=== PATIENT | female | born 1975 | race Two or more races ===

== ENCOUNTER 2018-04-13 17:33 | Emergency (ER) | payer MEDICAID ==
--- NOTE | 2018-04-13 18:11 | ED ---
Psychiatric Complaint - HPI Summary HPI Summary: The pt is a 42 y/o female presenting to [facility] c/o anxiety since 3 weeks ago after lacking her prescriptions for [place], Celexa and Xanax. She recently moves from [place]. The pt went to the [facility] clinic for a prescription but they were unable to. She denies SI/HI. She requests a prescription refill. Pertinent Mhx: Depression, Anxiety and PTSD. - History Of Current Complaint Chief Complaint: EDGeneral Time Seen by Provider: 04/13/18 18:03 Hx Obtained From: Patient Onset/Duration: Lasting Weeks - 3 weeks, Still Present Timing: Constant Character: Anxious Aggravating Factor(s): Other - Lack of psych medication Related History: Positive For: Prior Psychiatric Issues Has Suicidal: Denies: Thoughts, With A Plan Has Homicidal: Denies: Thoughts, With A Plan - Allergies/Home Medications Allergies/Adverse Reactions: Allergies Allergy/AdvReac Type Severity Reaction Status Date / Time latex Allergy Rash Verified 04/13/18 17:48 shellfish derived Allergy Anaphylatic Verified 04/13/18 17:48 Shock Home Medications: Home Medications ALPRAZolam TAB* [Xanax TAB*] 0.5 mg PO QAM 04/13/18 [History Confirmed 04/13/18] ARIPiprazole TAB* [Abilify 20 MG TAB*] 20 mg PO DAILY 04/13/18 [History Confirmed 04/13/18] Citalopram Hydrobromide [Celexa] 20 mg PO DAILY 04/13/18 [History Confirmed ] [place] Carbonate [[place] Carbonate 300 mg cap] 900 mg PO DAILY 04/13/18 [ History Confirmed 04/13/18] Tramadol HCl 1 % PO DAILY PRN 04/13/18 [History Confirmed 04/13/18] levETIRAcetam TAB* [Keppra TAB*] 1,000 mg PO BID 04/13/18 [History Confirmed ] PMH/Surg Hx/FS Hx/Imm Hx Previously Healthy: No Endocrine/Hematology History: Denies: Hx Diabetes Cardiovascular History: Denies: Hx Hypertension Sensory History: Denies: Hx Deafness Psychiatric History: Reports: Hx Anxiety, Hx Depression, Hx Post Traumatic Stress Disorder - Cancer History Cancer Type, Location and Year: None reported - Surgical History Surgery Procedure, Year, and Place: None reported Infectious Disease History: No Infectious Disease History: Denies: Traveled Outside the [place] in Last 30 Days - Family History Known Family History: Negative: Cardiac Disease, Hypertension, Diabetes - Social History Occupation: Employed Full-time Lives: With Family Alcohol Use: None Substance Use Type: Reports: None Smoking Status (MU): Light Every Day Tobacco Smoker Review of Systems Negative: Fever Positive: Anxious, Other - Negative: SI/HI All Other Systems Reviewed And Are Negative: Yes Physical Exam - Summary Physical Exam Summary: Appearance: The patient is well-nourished in no acute distress and in no acute pain. Skin: The skin is warm and dry and skin color reflects adequate perfusion. HEENT: The head is normocephalic and atraumatic. The pupils are equal and reactive. The conjunctivae are clear and without drainage. Nares are patent and without drainage. Mouth reveals moist mucous membranes and the throat is without erythema and exudate. The external ears are intact. The ear canals are patent and without drainage. The tympanic membranes are intact. Neck: The neck is supple with full range of motion and non-tender. There are no carotid bruits. There is no neck vein distension. Respiratory: Chest is non-tender. Lungs are clear to auscultation and breath sounds are symmetrical and equal. Cardiovascular: Heart is regular rate and rhythm. There is no murmur or rub auscultated. There is no peripheral edema and pulses are symmetrical and equal. Abdomen: The abdomen is soft and non-tender. There are normal bowel sounds heard in all four quadrants and there is no organomegaly palpated. Musculoskeletal: There is no back tenderness noted. Extremities are non-tender with full range of motion. There is good capillary refill. There is no peripheral edema or calf tenderness elicited. Neurological: Patient is alert and oriented to person, place and time. The patient has symmetrical motor strength in all four extremities. Cranial nerves are grossly intact. Deep tendon reflexes are symmetrical and equal in all four extremities. Psychiatric: The patient has an appropriate affect and does not exhibit any anxiety or depression. Triage Information Reviewed: Yes Vital Signs On Initial Exam: Initial Vitals Temp Pulse Resp BP Pulse Ox 98.5 F 56 20 121/58 95 04/13/18 17:43 04/13/18 17:43 04/13/18 17:43 04/13/18 17:43 04/13/18 17:43 Vital Signs Reviewed: Yes Diagnostics - Vital Signs Vital Signs Temp Pulse Resp BP Pulse Ox 04/13/18 17:43 98.5 F 56 20 121/58 95 - Laboratory Lab Statement: Any lab studies that have been ordered have been reviewed, and results considered in the medical decision making process. Course/Dx - Course Course Of Treatment: Ms. Demetri Cunningham has recently moved up here from [place]. She has multiple mental health problems and comes in today because she is running out of medications. Her primary complaint is anxiety. She went to the mental health clinic with their requirement is that she have 3 visits a month apart prior to seeing a psychiatrist for prescriptions. I will give her a short course (5 days) of her medications and recommend follow-up with [facility] to try to bridge her until she can see a psychiatrist. - Differential Dx/Clinical Impression Provider Diagnosis: Anxiety Discharge - Sign-Out/Discharge Documenting (check all that apply): Patient Departure - DC - Discharge Plan Condition: Stable Disposition: HOME Prescriptions: ALPRAZolam TAB* [Xanax TAB*] 0.5 mg PO QAM #5 tab MDD 1 ARIPiprazole TAB* [Abilify 20 MG TAB*] 20 mg PO DAILY #5 tab Citalopram TAB* [CeleXA TAB*] 20 mg PO DAILY #5 tab levETIRAcetam TAB* [Keppra TAB*] 1,000 mg PO BID #10 tab [place] Carbonate TAB* 900 mg PO DAILY #15 tab Tramadol 50 MG # 6 TAB PREPAK 50 mg PO DAILY #5 tab MDD 50 Patient Education Materials: Anxiety (ED) Forms: *Work Release Referrals: [facility] [Outside] Additional Instructions: Follow up with your [facility] this week. Return to ED for any new or worsening symptoms - Billing Disposition and Condition Condition: STABLE Disposition: Home - Attestation Statements Document Initiated by Scribe: Yes Documenting Scribe: Chasity Delatorre Provider For Whom Camila is Documenting (Include Credential): Dr. Jhony Turner MD Scribe Attestation: Chasity Dsouza scribed for Dr. Jhony Turner MD on 04/13/18 at 2102. Scribe Documentation Reviewed: Yes Provider Attestation: The documentation as recorded by the scribeChasity accurately reflects the service I personally performed and the decisions made by me, Dr. Jhony Turner MD
[2018-04-13 19:45] VITALS: BP 118/62
== END 2018-04-13 19:39 | disposition home or self-care (01) ==
LOC: ED 17:33
DX: F41.9 Anxiety disorder, unspecified (principal); F32.9 Major depressive disorder, single episode, unspecified; Z91.040 Latex allergy status; Z91.013 Allergy to seafood; F17.200 Nicotine dependence, unspecified, uncomplicated
CPT/HCPCS: 99282

== ENCOUNTER 2018-05-26 18:43 | Emergency (ER) | payer MEDICAID ==
--- OUTSIDE RECORDS SUMMARY | 2018-05-26 19:02 | XMS REPORT | Continuity of Care Document ---
:1975 External Reference #:[id number] Author Name Symone Machuca Care Team Providers Name Role Phone Care Connections Primary Care Physician Unavailable Payers Type Date Identification Numbers Payment Provider Subscriber Policy Number: [id number] Medicaid [employer] Name: 1 1 [address] PayID: [id number] [place] [address] Advance Directives Description No Information Available Problems Date Description Provider Status Onset: 04/30/2018 Insomnia Edd Santoyo MD Active Onset: 04/30/2018 Lump in right breast Edd Santoyo MD Active Onset: 04/30/2018 Adult health examination Edd Santoyo MD Active Onset: 04/30/2018 Low back pain Edd Santoyo MD Active Onset: 04/30/2018 Epilepsy Edd Satnoyo MD Active Onset: 04/30/2018 Anxiety state Edd Santoyo MD Active Onset: 04/30/2018 Bipolar disorder Edd Santoyo MD Active Family History Description No Information Available Social History Type Date Description Comments Sex Unknown Tobacco Use Start: Unknown End: Unknown Patient is a former smoker Smoking Status Reviewed: 04/30/18 Patient is a former smoker Allergies, Adverse Reactions, Alerts Description No Known Drug Allergies Medications Medication Date Status Form Strength Qnty SIG Indications Ordering Provider Keppra Active Tablets 1000mg 60tabs Take 1 pill G40.909 Edd Santoyo, 018 twice a day [employer] Active Capsules 600mg 60caps Take 1 pill F31.9 Edd Santoyo, Carbonate 018 twice a day Xanax Active Tablets 0.5mg 30tabs take 1 tab F41.9 Edd Santoyo, 018 once a day as needed for anxiety Abilify Active Tablets 10mg 30tabs Take 1 pill F31.9 Patricio Michale daily Celexa Active Tablets 20mg 30tabs Take 1 pill F31.9 Patricio Michael daily Trazodone HCL Active Tablets 100mg 30tabs take 1 G47.00 Patricio Michael tablet by mouth every night bedtime for insomnia Abilify Hx Tablets 20mg 30tabs Take 1 pill F31.9 Patricio Michael - daily Patricio Immunizations Description No Information Available Vital Signs Date Vital Result Comment 04/30/2018 11:09am Height 67 inches 5'7" Weight 200.00 lb Heart Rate 74 /min BP Systolic 116 mmHg BP Diastolic 74 mmHg Respiratory Rate 16 /min Body Temperature 98.4 F Pain Level 7 hip and back O2 % BldC Oximetry 98 % BMI (Body Mass Index) 31.3 kg/m2 Results Description No Information Available Procedures Description No Information Available Encounters Description No Information Available Plan of Treatment Future Appointment(s):05/31/2018 10:40 am - Edd Santoyo MD at [facility]04/30/2018 - Edd Santoyo MDF31.9 Bipolar disorder, unspecifiedNew Medication:[employer] Carbonate 600 mg - Take 1 pill twice a dayAbilify 10 mg - Take 1 pill dailyCelexa 20 mg - Take 1 pill dailyAbilify 20 mg - Take 1 pill dailyFollow up:4 weekF41.9 Anxiety disorder, unspecifiedNew Medication:Xanax 0.5 mg - take 1 tab once a day as needed for fbtgtbdX42.909 Epilepsy, unspecified, not intractable, without status epileNew Medication:Keppra 1000 mg - Take 1 pill twice a dayM54.5 Low back painZ00.01 Encounter for general adult medical examination with ikauqhuS57.13 Unspecified lump in the right breast, lower outer quadrantNew Xrays:[facility] Diagnostic Mammo Bilateral, Ordered: G47.00 Insomnia, unspecifiedNew Medication:Trazodone HCL 100 mg - take 1 tablet by mouth every night bedtime for insomnia
[2018-05-26] MEDS ORDERED: Cyclobenzaprine TAB* 10 MG PO ONE (20:15)
[2018-05-26] MEDS ORDERED: Ketorolac INJ* 30 MG/ML 1 ML VIAL IM ONE (20:15)
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
[2018-05-26 20:55] VITALS: BP 130/77
== END 2018-05-26 20:54 | disposition home or self-care (01) ==
LOC: ED 18:43
DX: M54.5 Low back pain (principal); M51.36 Other intervertebral disc degeneration, lumbar region; M47.816 Spondylosis without myelopathy or radiculopathy, lumbar region; Z91.040 Latex allergy status; Z91.013 Allergy to seafood
CPT/HCPCS: 72110; 96372; 99282; A9270-GY; J1885

== ENCOUNTER 2018-06-06 17:26 | Emergency (ER) | payer MEDICAID ==
[2018-06-06] MEDS ORDERED: levETIRAcetam TAB* 500 MG PO ONE (17:42)
[2018-06-06] MEDS ORDERED: Tetan/Diph/Pertus SYR(Tdap)* 0.5 ML SYR(BOOSTRIX) use SYR IM ONE (17:42)
[2018-06-06] MEDS ORDERED: Cephalexin CAP* 500 MG PO ONE (17:42)
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
[2018-06-06] MEDS ORDERED: Bacitracin OINTMENT* 0.5% 0.5 oz TUBE TOPICAL ONE (18:01)
[2018-06-06 19:30] VITALS: BP 128/90
== END 2018-06-06 19:29 | disposition home or self-care (01) ==
LOC: ED 17:26
DX: S09.90XA Unspecified injury of head, initial encounter (principal); S00.81XA Abrasion of other part of head, initial encounter; Y04.8XXA Assault by other bodily force, initial encounter; F43.10 Post-traumatic stress disorder, unspecified; F32.9 Major depressive disorder, single episode, unspecified; Y92.039 Unspecified place in apartment as the place of occurrence of the external cause; Z23 Encounter for immunization
CPT/HCPCS: 90471; 90715; 99283; A9270-GY